=== PATIENT | male | born 1975 | race Caucasian/White ===

== ENCOUNTER 2020-01-20 14:27 | Emergency (ER) | payer SELFPAY ==
[2020-01-20 15:34] VITALS: BP 124/73; PULSE 81; RESP 16; TEMP 36.8; O2SAT 98; BMI 20.5
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
== END 2020-01-20 16:14 | disposition home or self-care (01) ==
PROVIDERS: Emergency Provider Emergency Medicine
DX: S89.92XA Unspecified injury of left lower leg, initial encounter (principal); M25.562 Pain in left knee; V43.52XA Car driver injured in collision with other type car in traffic accident, initial encounter; Y93.9 Activity, unspecified; Y92.410 Unspecified street and highway as the place of occurrence of the external cause; Y99.9 Unspecified external cause status; Z79.899 Other long term (current) drug therapy
CPT/HCPCS: 99283

== ENCOUNTER 2020-02-28 14:35 | Outpatient (REF) | payer SELFPAY | END 2020-02-28 14:36 | disposition home or self-care (01) | LOC: HO.LAB 14:35 | PROVIDERS: Visit Provider Internal Medicine | DX: Z20.828 Contact with and (suspected) exposure to other viral communicable diseases (principal) | CPT/HCPCS: C9803; U0003 ==

== ENCOUNTER 2020-03-18 14:07 | Outpatient (REF) | payer OTHER, SELFPAY | END 2020-03-18 14:08 | disposition home or self-care (01) | LOC: HO.LAB 14:07 | PROVIDERS: Visit Provider Internal Medicine | DX: Z20.822 Contact with and (suspected) exposure to COVID-19 (principal) | CPT/HCPCS: 36415; C9803; U0003 ==

== ENCOUNTER 2020-06-23 12:32 | Outpatient (REF) | payer OTHER, SELFPAY | END 2020-06-23 12:33 | disposition home or self-care (01) | LOC: HO.LAB 12:32 | PROVIDERS: Visit Provider Internal Medicine | DX: Z20.822 Contact with and (suspected) exposure to COVID-19 (principal) | CPT/HCPCS: C9803; U0003; U0005 ==

== ENCOUNTER 2020-07-09 11:46 | Outpatient (REF) | payer OTHER, SELFPAY ==
[2020-07-09 12:41] LABS: COVID-19 Test Negative (Negative); IDNOW Serial# 55D5AD1C
== END 2020-07-09 11:47 | disposition home or self-care (01) ==
LOC: HO.LAB 11:46
PROVIDERS: Visit Provider Internal Medicine
DX: Z20.822 Contact with and (suspected) exposure to COVID-19 (principal)
CPT/HCPCS: 36415; 87635; C9803

== ENCOUNTER 2020-08-07 13:50 | Outpatient (REF) | payer OTHER, SELFPAY | END 2020-08-07 13:51 | disposition home or self-care (01) | LOC: HO.LAB 13:50 | PROVIDERS: Visit Provider Internal Medicine | DX: Z20.822 Contact with and (suspected) exposure to COVID-19 (principal) | CPT/HCPCS: C9803; U0003; U0005 ==

== ENCOUNTER 2023-02-09 16:42 | Emergency (ER) | payer OTHER, SELFPAY ==
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
[2023-02-09 17:04] VITALS: BP 140/92; PULSE 16; PULSE 62; RESP 16; TEMP 36.8; O2SAT 97; O2SAT 99; BMI 24.0
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
[2023-02-09] MEDS: Acetaminophen 325 MG TABLET 975 MG PO (17:49)
[2023-02-09] MEDS: Ondansetron ODT 4 MG TAB.RAPDIS TRANSLINGU (19:34)
[2023-02-09 20:15] VITALS: BP 119/79; PULSE 53; RESP 16; TEMP 36.5; O2SAT 99
--- NOTE | 2023-02-09 20:16 | MHC.EDTECH ---
This tech resumed care of PT at 1900. PT is found laying supine in bed with c-collar in place. PT vitals are taken.
[2023-02-09 21:05] VITALS: BP 122/84; PULSE 50; RESP 16; TEMP 36.4; O2SAT 98
== END 2023-02-09 21:46 | disposition home or self-care (01) ==
PROVIDERS: Emergency Provider Emergency Medicine
DX: S06.0X0A Concussion without loss of consciousness, initial encounter (principal); S46.912A Strain of unspecified muscle, fascia and tendon at shoulder and upper arm level, left arm, initial encounter; V43.02XA Car driver injured in collision with other type car in nontraffic accident, initial encounter; Y93.89 Activity, other specified; Y92.410 Unspecified street and highway as the place of occurrence of the external cause; Y99.9 Unspecified external cause status
CPT/HCPCS: 70450; 71101; 72125; 73030; 99284